=== PATIENT | female | born 1990 | race Two or more races ===

== ENCOUNTER 2017-12-30 08:00 | Outpatient (CLI) | payer MEDICAID | END 2017-12-30 08:01 | disposition home or self-care (01) | LOC: LAB.R 08:00 | PROVIDERS: ATTEND Nurse Practitioner Family | DX: J02.9 Acute pharyngitis, unspecified (principal) | CPT/HCPCS: 87070 ==

== ENCOUNTER 2017-12-30 08:00 | Outpatient (CLI) | payer MEDICAID ==
[2017-12-30 17:42] LABS: BASOPHILS # (AUTO) 0.1 10^3/uL (0.0-0.1); BASOPHILS % (AUTO) 0.9 %; EOSINOPHILS # (AUTO) 0.4 10^3/uL (0.0-0.7); EOSINOPHILS % (AUTO) 3.9 %; HGB - HEMOGLOBIN 13.5 g/dL (12.0-16.0); LYMPHOCYTES # (AUTO) 1.4 10^3/uL (1.5-3.5); LYMPHOCYTES % (AUTO) 15.7 %; MEAN CORPUSCULAR HEMOGLOBIN 30.1 pg (27.0-31.0); MEAN CORPUSCULAR HGB CONC 32.3 g/dL (32.0-36.0); MEAN CORPUSCULAR VOLUME 93.3 fL (81.0-99.0); MEAN PLATELET VOLUME 8.2 fL (7.9-10.8); MONOCYTES # (AUTO) 0.6 10^3/uL (0.0-1.0); NEUTROPHILS # (AUTO) 6.6 10^3/uL (1.5-6.6); NEUTROPHILS % (AUTO) 72.5 %; PLT - PLATELET COUNT 275 10^3/uL (130-450); RED BLOOD COUNT 4.49 10^6/uL (4.20-5.40); RED CELL DISTRIBUTION WIDTH 12.5 % (12.0-15.0); WHITE BLOOD COUNT 9.1 x10^3/uL (4.8-10.8)
== END 2017-12-30 08:01 ==
LOC: LAB.S 08:00
PROVIDERS: ATTEND Nurse Practitioner Family
DX: J02.9 Acute pharyngitis, unspecified (principal)
CPT/HCPCS: 36415; 85025; 86308

== ENCOUNTER 2019-05-07 12:25 | Outpatient (CLI) | payer MEDICAID ==
[2019-05-07 17:20] LABS: BASOPHILS # (AUTO) 0.1 10^3/uL (0.0-0.1); BASOPHILS % (AUTO) 1.2 %; EOSINOPHILS # (AUTO) 0.3 10^3/uL (0.0-0.7); EOSINOPHILS % (AUTO) 3.5 %; HGB - HEMOGLOBIN 13.4 g/dL (12.0-16.0); LYMPHOCYTES # (AUTO) 1.8 10^3/uL (1.5-3.5); LYMPHOCYTES % (AUTO) 24.5 %; MEAN CORPUSCULAR HEMOGLOBIN 30.3 pg (27.0-31.0); MEAN CORPUSCULAR HGB CONC 31.5 g/dL (32.0-36.0); MEAN CORPUSCULAR VOLUME 96.2 fL (81.0-99.0); MEAN PLATELET VOLUME 10.8 fL (7.9-10.8); MONOCYTES # (AUTO) 0.6 10^3/uL (0.0-1.0); MONOCYTES % (AUTO) 8.2 %; NEUTROPHILS # (AUTO) 4.7 10^3/uL (1.5-6.6); NEUTROPHILS % (AUTO) 62.2 %; PLT - PLATELET COUNT 273 10^3/uL (130-450); RED BLOOD COUNT 4.42 10^6/uL (4.20-5.40); RED CELL DISTRIBUTION WIDTH 12.6 % (12.0-15.0); WHITE BLOOD COUNT 7.5 x10^3/uL (4.8-10.8)
[2019-05-07 17:27] LABS: CALCIUM 9.1 mg/dL (8.5-10.3); CREATININE 0.7 mg/dL (0.4-1.0)
== END 2019-05-07 12:26 | disposition home or self-care (01) ==
LOC: LAB.S 12:25
PROVIDERS: ATTEND Registered Nurse
DX: R53.83 Other fatigue (principal)
CPT/HCPCS: 36415; 80048; 84443; 85025

== ENCOUNTER 2020-04-27 09:13 | Outpatient (CLI) | payer MEDICAID ==
[2020-04-27] MEDS ORDERED: GADOBUTROL 7.5 MMOL/7.5 ML VIAL ONE (09:33)
[2020-04-27] MEDS ORDERED: BUFFERED LIDOCAINE 10 ML SYRINGE ONE (09:33)
[2020-04-27] MEDS ORDERED: iohexoL-240 10 ML VIAL IVP ONE ×2 (10:48→10:50)
[2020-04-27] MEDS ORDERED: GADOBUTROL 7.5 MMOL/7.5 ML VIAL IVP ONE (10:51)
[2020-04-27] MEDS ORDERED: BUFFERED LIDOCAINE 10 ML SYRINGE IU ONE (10:52)
--- NOTE | 2020-04-27 14:11 | MRI Report ---
PROCEDURE: Arthrogram Shoulder LT INDICATIONS: LT SHOULDER ARTHOPATHIES CONTRAST: Intra-articular gadolinium contrast. TECHNIQUE: After the administration of 12 mL of dilute intra-articular Gadolinium contrast, oblique coronal T1 a nd T2 spin echo with fat saturation, oblique sagittal T1 spin echo with and without fat saturation, o blique sagittal T2 fast spin echo with fat saturation, axial T1 spin echo with fat saturation through the shoulder. COMPARISON: None. FINDINGS: Image quality: Excellent. Rotator cuff: Mild supraspinatus tendinopathy. Infraspinatus and teres minor tendons appear intact. Subscapularis t endon appears intact. No atrophy of the rotator cuff muscles. Bones and bursae: No bone marrow contusions or fractures. No acromioclavicular joint degeneration. The acromion demonstrates conventional anatomy, without an os acromiale. Capsule and soft tissues: Labrum: Ill-defined fraying of the superior labrum. The long head of the biceps tendon demonstrates normal location and morphology. The rotator interval appears normal, without fibrosis. The coracohumeral ligament is normal in thickness. IMPRESSION: Mild supraspinatus tendinopathy without discrete tear. Ill-defined fraying of the superior labrum which could be chronic tear/degeneration. Reviewed by: Bijan Yepez MD on 04/27/2020 2:10 PM PDT Approved by: Bijan Yepez MD on 04/27/2020 2:10 PM PDT Station ID: [id number]
--- NOTE | 2020-04-27 15:53 | XRAY Report ---
Reason: LT SHOULDER ARTHOPATHIES Procedure Date: 04/27/2020 Accession Number: [id number] / [id number] Procedure: FL - Arthrogram Needle Placement CPT Code: Final Report FULL RESULT: PROCEDURE: Arthrogram Needle Placement INDICATIONS: LT SHOULDER ARTHOPATHIES CONTRAST: CONTRAST: omnipaque FLUOROSCOPY TIME: FLUORO TIME: 0.12 min and NUMBER IMAGES: 3 TECHNIQUE: The indications, alternatives, benefits, risks, and complications of the procedure were explained to the patient. Written informed consent was obtained and placed in the chart. The shoulder was examined fluoroscopically and a site for needle placement chosen for entry into the glenohumeral joint from an anterior approach. The skin was prepped and draped in the usual fashion, and 1% lidocaine infiltrated from skin down to joint capsule. A spinal needle was inserted into the glenohumeral joint, and a small amount of iodinated contrast media injected to confirm intra-articular placement of the needle tip. This was followed by approximately 12 mL dilute solution of a gadolinium containing MR contrast agent. The needle was removed and a dressing was applied. The patient was given postprocedural instructions and sent to the MR suite for MR imaging. FINDINGS: A single fluoroscopic spot image demonstrates intra-articular location of injected iodinated contrast. IMPRESSION: Successful fluoroscopically guided administration of dilute Gadolinium solution into the shoulder joint for MR arthrogram. Reviewed by: Denisse Mcdowell MD on 04/27/2020 3:51 PM PDT Approved by: Denisse Mcdowell MD on 04/27/2020 3:51 PM PDT Station ID: [id number]
== END 2020-04-27 09:14 | disposition home or self-care (01) ==
LOC: DI 09:13
PROVIDERS: ATTEND Registered Nurse
DX: M75.82 Other shoulder lesions, left shoulder (principal)
CPT/HCPCS: 23350; 73222; 77002; A9585

== ENCOUNTER 2021-12-31 12:34 | Outpatient (CLI) | payer OTHER, MEDICAID ==
--- NOTE | 2021-12-31 13:08 | XRAY Report ---
PROCEDURE: Hand 3 View LT INDICATIONS: INJURY TO LEFT WRIST, HAND AND FINGERS. Left thumb dated 10, swelling worsening, lookin g for some dizziness for body or gas TECHNIQUE: 3 views of the hand(s) acquired. COMPARISON: None FINDINGS: Bones: No fractures or dislocations. No suspicious bony lesions. Soft tissues: In this patient with this given history, scrutiny is given to the thumb. No definite s oft tissue gas is seen. No radiopaque foreign bodies are seen. IMPRESSION: No definite soft tissue gas or radiopaque foreign body can be seen involving the thumb. Reviewed by: Denys Fontanez MD on 12/31/2021 12:07 PM [facility] Approved by: Denys Fontanez MD on 12/31/2021 12:07 PM [facility] Station ID: [id number]
== END 2021-12-31 23:59 | disposition home or self-care (01) ==
LOC: DI.S 12:34
PROVIDERS: ATTEND Registered Nurse
DX: S69.92XA Unspecified injury of left wrist, hand and finger(s), initial encounter (principal)

== ENCOUNTER 2023-04-12 07:55 | Outpatient (CLI) | payer MEDICAID, OTHER | END 2023-04-12 23:59 | disposition home or self-care (01) | LOC: LAB.S 07:55 | PROVIDERS: ATTEND Physician Assistant Medical | DX: J02.9 Acute pharyngitis, unspecified (principal) | CPT/HCPCS: 87070 ==